=== PATIENT | female | born 2000 | race Caucasian/White ===

== ENCOUNTER 2020-11-12 17:00 | Inpatient (IN) ==
[2020-11-12] MEDS ORDERED: MISOPROSTOL 100 MCG TABLET VG PRN (17:24)
[2020-11-12] MEDS ORDERED: OXYTOCIN/0.9 % SODIUM CHLORIDE 30 UNITS/500 ML BAG IV ONE (17:24)
[2020-11-12] MEDS ORDERED: ONDANSETRON 4 MG TAB.RAPDIS PO PRN (17:24)
[2020-11-12] MEDS ORDERED: BUTORPHANOL TARTRATE 2 MG/ML VIAL IV PRN ×2 (17:24)
[2020-11-12] MEDS ORDERED: LIDOCAINE HCL 50 ML VIAL PERI PRN (17:24)
[2020-11-12] MEDS ORDERED: RINGER'S SOLUTION,LACTATED 1,000 ML IV ONE (17:24)
[2020-11-12] MEDS: RINGER'S SOLUTION,LACTATED 1,000 ML IV PRN (18:00)
[2020-11-13] MEDS ORDERED: ONDANSETRON HCL/PF 2 MG/ML VIAL IV PRN (11:40)
[2020-11-13] MEDS ORDERED: NALOXONE HCL 1 MG/1 ML SYRG IV PRN (11:40)
[2020-11-13] MEDS ORDERED: BUPIVACAINE HCL/0.9 % NACL/PF 250 ML EP PRN (11:40)
[2020-11-13] MEDS ORDERED: fentaNYL CITRATE/PF 50 MCG/ML AMPUL IT SCH (11:45)
--- NOTE | 2020-11-13 12:48 | ANES ---
Post Anesthesia Discharge - Transfer of Care Transfer of Care handoff given to nurse: Yes - Anesthesia Post Op Note Anesthesia Post Op Note: Care transferred to OB RN
--- NOTE | 2020-11-13 12:48 | ANES ---
Anesthesia Pre Procedure Eval Vitals/Labs: Last Vital Signs Temp 37.0 C 11/12/20 17:26 Pulse 104 H 11/12/20 17:26 Resp 18 11/12/20 17:26 BP 120/80 11/12/20 17:26 Pulse Ox 97 11/12/20 17:26 HOME MEDICATIONS NK 11/12/20 [Last Taken Unknown] Allergies/Adverse Reactions: Allergies Allergy/AdvReac Type Severity Reaction Status Date / Time cefuroxime [From Ceftin] Allergy Mild Other Verified 11/12/20 09:27 latex Allergy Unknown blisters Verified 11/12/20 09:27 in the mouth - Planned Procedure Planned Procedure: Induction Medication List Reviewed:: Yes Allergies Verified: Yes Medical History (Last Reviewed 11/13/20 @ 12:47 by Jamal London CRNA) Back pain Onset Date: ~2014 Neck mass Onset Date: Unknown Pelvic pain in female Onset Date: ~2014 Pilomatrixoma Onset Date: Unknown Splenomegaly Onset Date: ~2005 Surgical History (Last Reviewed 11/13/20 @ 12:47 by Jamal London CRNA) No significant past surgical history Family History (Last Reviewed 11/13/20 @ 12:47 by Jamal London CRNA) Grandfather Cancer paternal - liver cancer Grandmother Cancer paternal - liver cancer Grandmother Cancer maternal - breast cancer - Family Anesthesia History Family History:: no untoward family reactions to anesthesia - Airway/Neck/Teeth Within Normal Limits:: Yes Teeth Condition: intact Neck Exam: full range of motion Mallampatti Score: 2 Thyromental (T-M) distance: > 6 cm Mandibulo Hyoid distance: > 3 cm - Respiratory Respiratory Physical: lungs clear Smoking Status: Never smoker Sleep Apnea currently treated: No Sleep Apnea by current assessment: No - Cardiovascular Tolerate Activity: Good Heart Sounds: S1 & S2, Regular - Gastrointestinal NPO since: MN - Anesthesia Assessment and Plan ASA Class: PS, II, E Anesthesia Type Plan: Epidural Planned difficult intubation/equipment available: No
--- NOTE | 2020-11-13 12:50 | ANES ---
Post Anesthesia Assessment - Vital Signs Vitals: Last Vital Signs Temp 37.0 C 11/12/20 17:26 Pulse 104 H 11/12/20 17:26 Resp 18 11/12/20 17:26 BP 120/80 11/12/20 17:26 Pulse Ox 97 11/12/20 17:26 Airway Patency: Normal - Mental Status Level Of Consciousness: Awake - Pain Level Pain Score: 0 - N/V Assessment Nausea/Vomiting Presence: None Dehydration:: No
--- NOTE | 2020-11-13 12:53 | ANES ---
Anesthesia Procedure Note Procedure Note: ANESTHESIA PROCEDURE NOTE Date of Procedure: 11/13/2020 Time of procedure: 1150. Performed by: Chase London CRNA Assistant Program Director: None. Preprocedure diagnosis: Active labor. Post procedure diagnosis: Same. Procedure: Insertion of labor epidural. Indications: The patient is a 20-year-old prima para female in active labor requesting labor epidural for pain management. Findings: See below. Details of the procedure: The patient was placed in a sitting position. Back was prepped with DuraPrep. Patient was then draped in a sterile fashion. Lidocaine 1% was infiltrated to the skin and subcutaneous tissues at the level of the L3 4 interspace. The epidural space was identified using a 18-gauge Tuohy needle with harr-[id number]-lcubqovlmw technique. Attempted dural puncture with 27-gauge spinal needle for intrathecal narcotic injection. Patient experienced discomfort. That part of procedure was aborted. Epidural catheter was inserted without difficulty. Negative test dose was elicited using 5 mL of 1.5% preservative- free lidocaine plus epinephrine 1 200,000. The epidural catheter was then taped and secured in place. EBL: Minimal. Fluids: N/A. Specimen: N/A. Post procedure condition: The patient tolerated the procedure well. No complications were noted. Thank you for this consultation. Camargo CRNA
--- NOTE | 2020-11-13 12:58 | HP ---
Chief Complaint - Chief Complaint Date of Service: 11/13/20 Time of Service: 12:58 Chief Complaint: labor induction History of Present Illness: 20 year old at 39w 3d who presented to L&D for an elective IOL. She denies vb or lof. She reports regular ctx. Fetus is active. Medical History (Last Reviewed 11/13/20 @ 13:40 by Tricia García MD) Back pain Onset Date: ~2014 Neck mass Onset Date: Unknown Pelvic pain in female Onset Date: ~2014 Pilomatrixoma Onset Date: Unknown Splenomegaly Onset Date: ~2005 Surgical History: Surgical History (Last Reviewed 11/13/20 @ 13:40 by Tricia García MD) No significant past surgical history Family History: Family History (Last Reviewed 11/13/20 @ 13:40 by Tricia García MD) Grandfather Cancer paternal - liver cancer Grandmother Cancer paternal - liver cancer Grandmother Cancer maternal - breast cancer Social History: (Last Reviewed 11/13/20 @ 13:40 by Tricia García MD) Social History: Marital status: Single household members: spouse number of children: 0 current occupational status: employed current occupation: [employer] Highest level of school completed/degree received: high school graduate Sexually Active: Yes Service: No Tobacco: Smoking Status: Never smoker Alcohol: alcohol intake: former details: stopped with Substance Use: substance use type: does not use Dietary Habits: caffeine: Yes caffeine comment: 1 weekly Type: carbonated beverages Exercise: frequency: 1-2 times per week Review Of Systems (GEN) - Review of Systems Generalized/Overall Review: Present: No Symptoms Reported Misc: All systems neg except as marked Immunizations: IMMUNIZATION HX Immunizations Up to Date Yes History of Influenza Vaccine No Hx Pneumococcal Vaccination No Allergies/Adverse Reactions: Allergies Allergy/AdvReac Type Severity Reaction Status Date / Time cefuroxime [From Ceftin] Allergy Mild Other Verified 11/12/20 09:27 latex Allergy Unknown blisters Verified 11/12/20 09:27 in the mouth Home Medications: HOME MEDICATIONS NK 11/12/20 [Last Taken Unknown] Exam - Exam Vital Signs: Vital Signs - Last Taken Temp 37.0 C 11/12/20 17:26 Pulse 104 H 11/12/20 17:26 Resp 18 11/12/20 17:26 BP 120/80 11/12/20 17:26 Pulse Ox 97 11/12/20 17:26 Constitutional: Present: Alert, Oriented x3, Cooperative, No distress ENT Exam: Present: hearing grossly normal Eye Exam: bilateral eye: normal inspection Neck: Present: normal inspection Breasts: Present: Exam deferred Respiratory: Present: lungs clear, normal breath sounds, no respiratory distress Cardiovascular/Chest: Present: regular rate, rhythm Abdomen: Present: soft, nontender, nondistended - 3/70/-2 AROM for a large amount of clear fluid Extremity: Present: non-tender, no calf tenderness Skin Exam: Present: normal color, warm/dry, no cyanosis Neurologic: Present: alert, normal mood/affect, oriented x 3 Appearance: Present: appropriate appearance, appropriate insight, neat, no memory impairment Eye contact: Present: cooperative, good eye contact, normal speech Thoughts: Present: normal thought pattern Diagnostic Studies: Laboratory Results Blood Type O Negative 11/12/20 17:38 Antibody Screen Positive 11/12/20 17:38 Assessment/Plan - Narrative Narrative: 20 year old at 39w 3d 1. Elective IOL: s/p one dose of misoprostol. Restart pitocin when able 2. 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
[2020-11-13] MEDS ORDERED: LIDOCAINE HCL/EPINEPHRINE 20 ML VIAL ONE (15:42)
[2020-11-13] MEDS ORDERED: fentaNYL CITRATE/PF 50 MCG/ML AMPUL IT ONE (16:49)
[2020-11-13] MEDS: RINGER'S SOLUTION,LACTATED 1,000 ML IV PRN (16:56)
--- NOTE | 2020-11-13 17:09 | ANES ---
Anesthesia Procedure Note Procedure Note: ANESTHESIA PROCEDURE NOTE Date of Procedure: 11/13/2020 Time of procedure: 1630. Performed by: Chase London CRNA Developmental Training Counselor: None. Preprocedure diagnosis: Active labor. Post procedure diagnosis: Same. Procedure: Insertion of dislodged labor epidural. Indications: The patient is a [20] -year-old prima para female in active labor requesting labor epidural for pain management. Findings: See below. Details of the procedure: Patient having significant discomfort with contractions. Indwelling epidural catheter removed. The patient was placed in a sitting position. Back was prepped with DuraPrep. Patient was then draped in a sterile fashion. Lidocaine 1% was infiltrated to the skin and subcutaneous tissues at the level of the L 2 3 interspace. The epidural space was identified using a 18-gauge Tuohy needle with kbio-ka-qeofeggzay technique. 20 mcg fentanyl was given intrathecally using a 27 ga. spinal needle. Epidural catheter was inserted without difficulty. Negative test dose was elicited using 5 mL of 1.5% preservative-free lidocaine plus epinephrine 1 200,000. The epidural catheter was then taped and secured in place. EBL: Minimal. Fluids: N/A. Specimen: N/A. Post procedure condition: The patient tolerated the procedure well. No complications were noted. Thank you for this consultation. Camargo CRNA
--- NOTE | 2020-11-13 17:19 | ANES ---
Anesthesia Procedure Note Procedure Note: ANESTHESIA PROCEDURE NOTE Date of procedure: 11/13/2020. Time of procedure: 1545. Performed by: Chase London CRNA Manager Analysis: None . Preprocedure diagnosis: OB patient experiencing pain with contractions. Patient has indwelling epidural catheter.. Post procedure diagnosis: Same. Procedure: Local anesthesia bolus through epidural catheter Indications: Pain with contraction. Findings: Patient's indwelling epidural site examined with epidural catheter appearing to be in the epidural space. Patient is having right sided pain with contractions. Patient's left leg and left abdominal region are numb. Patient placed in right lateral decubitus position and given 7 mL of methylparaben free 2% Xylocaine with epinephrine 1-200,000. Patient pain level was reevaluated after 15-minutes without any change. Epidural catheter was then removed and a new one was placed. Please see dictated note for that procedure. EBL: Minimal. Fluids: N/A. Specimen: N/A. Post procedure condition: The patient tolerated the procedure well. No complications were noted. Thank you for this consultation Chase London CRNA
[2020-11-14] MEDS: RINGER'S SOLUTION,LACTATED 1,000 ML IV PRN (01:26)
[2020-11-14] MEDS ORDERED: CALCIUM CARBONATE 500 MG TAB.CHEW PO PRN (01:51)
--- NOTE | 2020-11-14 05:17 | OR ---
Operative Report - Dictated Report Narrative: Date of delivery: 11/14/2019 Time of delivery: 422 Gender: female weight: 3757 grams APGARS: 06/04 Procedure: Attempt at vacuum assisted vaginal delivery followed by spontaneous vaginal delivery Description of the procedure: The patient is a 20 year old at 39w 4d who presented to labor and delivery for an elective IOL. She received a dose of misoprostol followed by pitocin administration and AROM. She progressed to complete dilation. She pushed for close to 3 hours then had passive descent/laboring down. Given the prolonged second stage of labor I consented a patient for a vacuum delivery. All risks, benefits, and alternatives of the procedure were explained to the patient and the patient consented to the procedure. The vacuum application time was 59 seconds and there were two pop offs at which time vacuum delivery was abandoned. Prior to the vacuum the station was at +5. The vacuum brought the head to the position. After that progress was slow but nonetheless there was progress every single time with maternal pushing efforts. The patient delivered a viable female in direct OA presentation. The shoulders delivered without difficulty with gentle downward traction. There was a slight delay but not a shoulder dystocia related to maternal effort. Cord clamping was delayed for 60 seconds due to vigorous . The cord was clamped and cut. Cord blood was collected. The placenta was delivered by expression, intact, and without difficulty. A first degree vaginal laceration was noted as well as a right labial laceration. Both lacerations did not require repair and were hemostatic. EBL: 300 mL Complications: none Specimens: cord blood History for Definition: * The number of deliveries resulting in a live the patient experienced prior to current hospitalization * The previous delivery of live twins or any live multiple gestation is considered one live event. *If primagravida or nulliparous is documented select zero for the number of previous live births. Live Events: 0
[2020-11-14] MEDS ORDERED: MISOPROSTOL 200 MCG TABLET RC ONE (06:04)
[2020-11-14] MEDS ORDERED: diphenhydrAMINE HCL 25 MG CAPSULE PO PRN (07:11)
[2020-11-14] MEDS ORDERED: SENNOSIDES 8.6 MG TABLET PO PRN (07:11)
[2020-11-14] MEDS ORDERED: BISACODYL 10 MG SUPP.RECT RC PRN (07:11)
[2020-11-14] MEDS ORDERED: BENZOCAINE/MENTHOL 81 SPRAY CAN TP PRN (07:11)
[2020-11-14] MEDS ORDERED: OXYTOCIN/0.9 % SODIUM CHLORIDE 30 UNITS/500 ML BAG IV ONE (07:11)
[2020-11-14] MEDS ORDERED: HYDROcodone/ACETAMINOPHEN 1 EACH TABLET PO PRN ×2 (07:11)
[2020-11-14] MEDS ORDERED: HYDROCORTISONE 30 APPL TUBE TP PRN (07:11)
[2020-11-14] MEDS: GLYCERIN/WITCH HAZEL LEAF 40 APPL BOX TP PRN (07:31)
[2020-11-14] MEDS: DOCUSATE SODIUM 100 MG CAPSULE PO SCH ×2 (09:53→21:14)
[2020-11-14] MEDS: IBUPROFEN 800 MG TABLET PO PRN (20:51)
--- NOTE | 2020-11-15 10:05 | PN ---
Subjective - Date and Time Seen Date: 11/15/20 Time: 10:03 Subjective Narrative: Patient without complaints Objective Objective Narrative: See vital signs - Review of Systems Generalized/Overall Review: Reports: No Symptoms Reported Misc: All systems neg except as marked - Vitals Vitals: Last Vital Signs Temp 36.4 C 11/15/20 01:44 Pulse 82 11/15/20 01:44 Resp 16 11/15/20 01:44 BP 108/52 11/15/20 01:44 Pulse Ox 97 11/15/20 01:44 - Exam Constitutional: Present: Alert, Oriented x3, Cooperative, No distress Abdomen: Present: soft, nontender, nondistended - fundus is firm Extremity: Present: non-tender, no calf tenderness Skin Exam: Present: normal color, warm/dry, no cyanosis Neurologic: Present: alert, normal mood/affect, oriented x 3 Appearance: Present: appropriate appearance, appropriate insight, neat, no memory impairment Eye contact: Present: cooperative, good eye contact, normal speech Thoughts: Present: normal thought pattern Cauti Physician Documentation - Urinary Catheter Management Urethral (Mejia) Urethral Indwelling: No Date of Insertion: 11/13/20 Time of Insertion: 13:02 Date of Removal: 11/14/20 Time of Removal: 03:50 Assessment/Plan Plan Narrative: PPD 1 s/p Doing well Discharge tomorrow - Problems/Diagnosis (1) 39 weeks gestation of Problem: Acute (2) Elective induction of labor planned Problem: Acute (3) Elective induction of labor planned Problem: Acute (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
[2020-11-15] MEDS: DOCUSATE SODIUM 100 MG CAPSULE PO SCH ×2 (21:33→21:34)
[2020-11-16] MEDS: IBUPROFEN 800 MG TABLET PO PRN (06:42)
[2020-11-16] MEDS: DOCUSATE SODIUM 100 MG CAPSULE PO SCH ×3 (06:42→22:27)
--- NOTE | 2020-11-16 12:00 | PN ---
Subjective - Date and Time Seen Date: 11/16/20 Time: 11:59 Subjective Narrative: Patient without complaints Objective Objective Narrative: See vital signs - Review of Systems Generalized/Overall Review: Reports: No Symptoms Reported Misc: All systems neg except as marked - Vitals Vitals: Last Vital Signs Temp 36.0 C 11/16/20 06:51 Pulse 87 11/16/20 06:51 Resp 16 11/16/20 06:51 BP 121/62 11/16/20 06:51 Pulse Ox 97 11/16/20 06:51 - Exam Constitutional: Present: Alert, Oriented x3, Cooperative, No distress ENT Exam: Present: hearing grossly normal Neck: Present: normal inspection Abdomen: Present: soft, nontender, nondistended Extremity: Present: non-tender, no calf tenderness Skin Exam: Present: normal color, warm/dry, no cyanosis Neurologic: Present: alert, normal mood/affect, oriented x 3 Appearance: Present: appropriate appearance, appropriate insight, neat, no me gaurang impairment Eye contact: Present: cooperative, good eye contact, normal speech Thoughts: Present: normal thought pattern Cauti Physician Documentation - Urinary Catheter Management Urethral (Mejia) Urethral Indwelling: No Date of Insertion: 11/13/20 Time of Insertion: 13:02 Date of Removal: 11/14/20 Time of Removal: 03:50 Assessment/Plan Plan Narrative: PPD 2 s/p VAVD/ Doing well Discharge today - Problems/Diagnosis (1) 39 weeks gestation of Problem: Acute (2) Elective induction of labor planned Problem: Acute (3) Elective induction of labor planned Problem: Acute (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
--- NOTE | 2020-11-16 12:02 | DS ---
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 She had an attempt at a VAVD followed by a . There were no complications Discharge Location: Home Disposition: Home self-care Referrals: Ibrahima Khan DO [Primary Care Provider] - Activity on Discharge:: Activity as tolerated, Pelvic Rest Discharge Diet: General/regular food Additional Patient Instructions (free text): Jenny will follow up with Dr. García on Friday January 08, 2021 at 2:30 pm. Rest when your baby rests. Always lay her on her back to sleep, in her own sleeping area. No extra pillows, blankets or stuffed animals. No co-sleeping. Ysabel has an appointment on Tuesday with Dr. Hernandez at 8:45 Rosiervin weight was 8 lb 4.5 oz. Todays weight was 7 lb 14.9 oz Her blood type is O negative. She passed her hearing and CHD screens. Thank You for choosing [facility] for your special event. We have enjoyed caring for you and your baby. We hope we have exceeded your expectations for your special event. If your have any questions or concerns please call the [facility] [phone], [facility] [phone] or [facility] [phone]. Complete Home Medications List: Complete Home Medication List: Ibuprofen [Motrin] 800 mg PO Q6H PRN tab 11/15/20 - Plan Discharge to:: Home Comment:: Routine Discharge Instructions Follow up in office in:: Other - 4 weeks - Information Weight (Grams): 3,757 Sex: Female Score 1 min: 9 Score 5 min: 9 Infant Complications: Other Other Complications: failed vacuum attempt with 2 popoffs
[2020-11-16 18:47] VITALS: BP 127/71
[2020-11-16] MEDS: GLYCERIN/WITCH HAZEL LEAF 40 APPL BOX TP PRN (22:26)
== END 2020-11-16 23:55 | disposition home or self-care (01) | DRG 807 ==
LOC: OB 17:01
PROVIDERS: ADMIT Obstetrics & Gynecology; ATTEND Obstetrics & Gynecology